=== PATIENT | female | born 1945 | race Caucasian/White ===

== ENCOUNTER 2018-12-28 12:34 | Day surgery (SDC) | payer OTHER ==
[~2018-12-28] VITALS: Ht 160 cm; Wt 67.7 kg
[2018-12-28] MEDS ORDERED: LORA1TAB PO (13:54)
[2018-12-28] MEDS ORDERED: PANT40TA4 PO (13:54)
[2018-12-28] MEDS ORDERED: CITA40TA6 PO (13:54)
[2018-12-28] MEDS ORDERED: METR-122 PO (13:54)
[2018-12-28] MEDS ORDERED: ACET325T45 PO (13:54)
[2018-12-28] MEDS ORDERED: CELE100C PO (13:54)
[2018-12-28] MEDS ORDERED: AMLO5TAB4 PO (13:54)
[2018-12-28] MEDS ORDERED: ATOR10TA65 PO (13:54)
[2018-12-28] MEDS ORDERED: LISI40TA3 PO (13:54)
[2018-12-28] MEDS ORDERED: HYDR-3672 PO (13:54)
[2018-12-28] MEDS ORDERED: ONDA4TAB14 PO (13:54)
[2018-12-28] MEDS ORDERED: GLIP5TAB13 PO (13:54)
[2018-12-28] MEDS ORDERED: ADAL40PE SQ (13:54)
[2018-12-28] MEDS ORDERED: FOLI-49 PO (13:54)
[2018-12-28] MEDS ORDERED: SERT-165 PO (13:54)
[2018-12-28] MEDS ORDERED: PROPOFOL 200 MG INJ ONE (14:00)
[2018-12-28 14:01] VITALS: Ht 160 cm; Wt 67.7 kg
--- NOTE | 2018-12-28 14:03 | PREAC ---
Date/Time of Note Date/Time of Note DATE: 12/28/18 TIME: 14:03 Anesthesia Eval and Record Evaluation Time Pre-Procedure Interview DATE: 12/28/18 TIME: 14:03 Age 73 Sex female NPO: 8 hrs Preoperative diagnosis screening Planned procedure colonoscopy Past Medical History Past Medical History: Includes Cardio: HTN Endo: Diabetes GI: GERD, Obesity Surgery & Anesthesia Issues No known issue Meds Anticoagulation: No Beta Jono within 24 hr: No Reason Beta Jono not given: Pt. not on B-Jono Reported Medications Sertraline Hcl* (Sertraline Hcl*) 100 Mg Tablet, 100 MG PO DAILY, #30 TAB 12/28/18 Pantoprazole* (Pantoprazole*) 40 Mg Tablet.dr, 40 MG PO DAILY, TAB 12/28/18 Ondansetron (Ondansetron Odt) 4 Mg Tab.rapdis, 4 MG PO Q6H PRN for NAUSEA AND/OR VOMITING, TAB 12/28/18 Metronidazole* (Metronidazole*) 500 Mg Tablet, 500 MG PO DAILY, TAB 12/28/18 Lorazepam* (Lorazepam*) 1 Mg Tablet, 1 MG PO DAILY PRN for PRN, #30 TAB 12/28/18 Lisinopril* (Lisinopril*) 40 Mg Tablet, 40 MG PO DAILY, #30 TAB 12/28/18 Hydralazine Hcl* (Hydralazine Hcl*) 50 Mg Tab, 50 MG PO Q8, #90 TAB 12/28/18 Glipizide* (Glipizide*) 5 Mg Tablet, 5 MG PO DAILY, TAB 12/28/18 Folic Acid* (Folic Acid*) 1 Mg Tablet, 1 MG PO DAILY, TAB 12/28/18 Citalopram Hydrobromide* (Citalopram Hydrobromide*) 40 Mg Tablet, 40 MG PO DAILY, #30 TAB 12/28/18 Celecoxib* (Celebrex*) 100 Mg Capsule, 100 MG PO DAILY, CAP 12/28/18 Atorvastatin Calcium (Atorvastatin Calcium) 10 Mg Tablet, 10 MG PO QHS, #30 TAB 12/28/18 Amlodipine Besylate* (Norvasc*) 5 Mg Tablet, 5 MG PO DAILY, TAB 12/28/18 Adalimumab (Humira) 40 Mg/0.8 Ml Pen.ij.kit, 40 MG SQ 12/28/18 Acetaminophen* (Acetaminophen*) 325 Mg Tablet, 325 MG PO Q4H PRN for PAIN AND OR ELEVATED TEMP, #30 TAB 12/28/18 Meds reviewed: No Allergies Coded Allergies: No Known Allergy (Unverified , 12/28/18) Allergies Reviewed: No Labs/Studies Labs Reviewed: Reviewed by anesthesiologist test: Negative Studies: ECG Pre-procedure Exam Airway: Adequate mouth opening, Adequate thyromental dist Mallampati: Mallampati II Teeth: Normal Lung: Normal Heart: Normal ASA Physical Status ASA physical status: 3 Emergency: None Pre-operative Attestations Prior to commencing anesthesia and surgery, the patient was re-evaluated, there was verification of: *The patient's identity *The results of appropriate recent lab work and preoperative vital signs *The above evaluation not changing prior to induction *Anesthetic plan, risk benefits, alternative and complications discussed with patient/family; questions answered; patient/family understands, accepts and wishes to proceed. ISAIAS BARCENAS Dec 28, 2018 14:03
[2018-12-28] MEDS ORDERED: PROPOFOL 20 ML ONE (14:07)
[2018-12-28 14:34] VITALS: BP 149/72; PULSE 71; RESP 20
[2018-12-28 15:53] VITALS: BP 170/74; RESP 20
--- NOTE | 2018-12-29 08:48 | PAC ---
Date/Time of Note Date/Time of Note DATE: 12/29/18 TIME: 08:48 Post-Anesthesia Notes Post-Anesthesia Note Last documented vital signs Vital Signs Date Temp Pulse Resp B/P (MAP) Pulse Ox O2 O2 Flow FiO2 Time Delivery Rate 12/28/18 20 170/74 97 15:53 (106) 12/28/18 97.6 71 Room Air 14:34 Activity: WNL Respiratory function: WNL Cardiovascular function: WNL Mental status: Baseline Pain reasonably controlled: Yes Hydration appropriate: Yes Nausea/Vomiting absent: Yes ISAIAS BARCENAS Dec 29, 2018 08:48
== END 2018-12-28 15:58 | disposition home or self-care (01) ==
LOC: GIL 12:34
PROVIDERS: ATTEND Internal Medicine
DX: Z12.11 Encounter for screening for malignant neoplasm of colon (principal); K57.30 Diverticulosis of large intestine without perforation or abscess without bleeding; I10 Essential (primary) hypertension; E11.9 Type 2 diabetes mellitus without complications
CPT/HCPCS: 82962